=== PATIENT | male | born 1975 | race Caucasian/White ===

== ENCOUNTER 2020-05-06 20:26 | Emergency (ER) | payer SELFPAY ==
[~2020-05-06] VITALS: Ht 180.3 cm; Wt 145.1 kg
[2020-05-06] MEDS ORDERED: TRAMADOL HCL50 MG PO (20:34)
[2020-05-06] MEDS ORDERED: KEFLEX500 M1 PO (20:34)
[2020-05-06] MEDS ORDERED: LEVOFLOXACIN500 MG PO (20:34)
[2020-05-06] MEDS ORDERED: ACYCLOVIR400 MG PO (21:37)
[2020-05-06 22:13] LABS: BILIRUBIN Negative (Negative); BLOOD Negative (Negative); CLARITY Clear (Clear); COLOR Yellow (Yellow); GLUCOSE 1+ (Negative); KETONE Negative (Negative); LEUKO ESTERASE 1+ (Negative); NITRITE Negative (Negative); SPECIFIC GRAVITY >= 1.030 (1.001-1.030)
== END 2020-05-06 22:45 | disposition home or self-care (01) ==
LOC: ED 20:26
PROVIDERS: Physician Assistant
DX: Z20.2 Contact with and (suspected) exposure to infections with a predominantly sexual mode of transmission (principal); Z79.899 Other long term (current) drug therapy